=== PATIENT | male | born 1970 | race Caucasian/White ===

== ENCOUNTER → 2025-04-05 | Outpatient (CLI) | payer OTHER ==
--- NOTE | 2025-04-05 09:48 | CA ---
Transthoracic Echo Report Name: Javy Watts Age: 55 Gender: M : 1970 Exam Date: 04/05/2025 08:18 Exam Location: [facility] Ht (in): 67 Wt (lb): 334 Ordering Physician: Flip Ospina MD Attending/Referring Phys: Flip Ospina MD [employer] Lizeth Alaniz, RD Procedure CPT: Indications: I25.9 Ischemic heart disease Cardiac Hx: Technical Quality: Fair Contrast 1: Total Dose (mL): Contrast 2: Total Dose (mL): MEASUREMENTS (Male / Female) Normal Values 2D ECHO LV Diastolic Diameter PLAX 5.2 cm 4.2 - 5.9 / 3.9 - 5.3 cm LV Systolic Diameter PLAX 3.8 cm IVS Diastolic Thickness 1.1 cm 0.6 - 1.0 / 0.6 - 0.9 cm LVPW Diastolic Thickness 1.3 cm 0.6 - 1.0 / 0.6 - 0.9 cm LV Relative Wall Thickness 0.4 RV Internal Dim ED PLAX 2.4 cm LA Systolic Diameter LX 3.6 cm 3.0 - 4.0 / 2.7 - 3.8 cm LV Diastolic Volume MOD BP 90.5 cm??? 67 - 155 / 56 - 104 cm??? LV Systolic Volume MOD BP 37.7 cm??? - 58 / 19 - 49 cm??? LV Ejection Fraction MOD BP 58.3 % >= 55 % LV Cardiac Index MOD BP 1697.9 cm???/min???m??? LV Diastolic Volume MOD 4C 92.7 cm??? LV Systolic Volume MOD 4C 39.8 cm??? LV Ejection Fraction MOD 4C 57.0 % LV Cardiac Index MOD 4C 1700.4 cm???/min???m??? LV Diastolic Length 4C 7.8 cm LV Systolic Length 4C 6.8 cm LV Diastolic Volume MOD 2C 87.5 cm??? LV Systolic Volume MOD 2C 34.5 cm??? LV Ejection Fraction MOD 2C 60.6 % LV Cardiac Index MOD 2C 1707.1 cm???/min???m??? LV Diastolic Length 2C 7.9 cm LV Systolic Length 2C 7.1 cm LA Volume 38.7 cm??? 18 - 58 / 22 - 52 cm??? LA Volume Index 14.0 cm???/m??? 16 - 28 cm???/m??? M-MODE Aortic Root Diameter MM 3.8 cm LA Systolic Diameter MM 3.3 cm LA Ao Ratio MM 0.9 DOPPLER AV Peak Velocity 146.2 cm/s AV Peak Gradient 8.6 mmHg AV Mean Velocity 109.5 cm/s AV Mean Gradient 5.4 mmHg AV Velocity Time Integral 33.3 cm MV Area PHT 2.9 cm??? Mitral E Point Velocity 69.1 cm/s Mitral A Point Velocity 96.8 cm/s Mitral E to A Ratio 0.7 MV Deceleration Time 262.6 ms FINDINGS Left Ventricle Left ventricular ejection fraction is estimated at 50-55 %. Left ventricular cavity size normal. Left ventricular wall thickness normal. No obvious regional wall motion abnormalities. Mildly reduced global left ventricular systolic function. Right Ventricle Mild -moderate right ventricular dilatation. Unable to estimate the right ventricular systolic pressure. Right Atrium Normal right atrial size. Left Atrium Left atrial size at the upper limits of normal. Mitral Valve Structurally normal mitral valve. Trace mitral regurgitation. No mitral stenosis. Aortic Valve Aortic valve not well visualized. No aortic valve stenosis or regurgitation. Tricuspid Valve Structurally normal tricuspid valve. Trace tricuspid regurgitation. No tricuspid stenosis. Pulmonic Valve Structurally normal pulmonic valve. Trace pulmonic regurgitation. No pulmonic stenosis. Pericardium No pericardial or pleural effusion. Echo free space anterior to the right ventricle likely represents a fat pad. Aorta Mild aortic dilatation at the level of the sinuses of valsalva (root). CONCLUSIONS Technically somewhat difficult study. Normal LV size preserved systolic function ejection fraction is in the 50 to 55% range. Minimal mitral and tricuspid regurgitation. Right-sided pressures are not well quantified. No pericardial effusion but possible fat pad. Previewed by: Dr. Chon Estrada MD (Electronically Signed) Final Date: 05 Apr 2025 09:48
== END | disposition home or self-care (01) ==
LOC: RADECHMAIN 08:04
PROVIDERS: ATTEND Internal Medicine
DX: I08.1 Rheumatic disorders of both mitral and tricuspid valves (principal); I25.9 Chronic ischemic heart disease, unspecified
CPT/HCPCS: 93306